=== PATIENT | male | born 1950 | race Caucasian/White ===

== ENCOUNTER 2017-01-30 10:12 | Emergency (ER) | payer SELFPAY ==
[~2017-01-30] VITALS: Ht 180.3 cm; Wt 90.0 kg
[~2017-01-30 10:12] MED LIST: AMIODARONE 900 MG INJ ONE; ATROPINE 1 MG/10 ML SYRINGE ONE; CA CHLORIDE 10% 10 ML SYRINGE ONE; DOPamine-D5W 1.6 MG/ML 250 ML ONE; EPINEPHrine 0.1 MG/ML SYG ONE; ETOMIDATE 20 MG INJ ONE; MAGNESIUM SULFATE 1 GM/100 ML D5W IVPB ONE; SODIUM CL BACTERIOSTATIC 30 ML INJ ONE; SUCCINYLCHOLINE CHLORIDE 100 MG/5 ML SYG IV ONE
[2017-01-30 10:16] VITALS: Ht 180.3 cm; Wt 90.0 kg
[2017-01-30] MEDS ORDERED: EPINEPHrine 0.1 MG/ML SYG ONE ×4 (10:33→11:14)
[2017-01-30 11:37] LABS: ALBUMIN 2.7 g/dl (3.3-4.9); POTASSIUM 3.7 mmol/L (3.5-5.1)
[2017-01-30 11:39] LABS: CREATININE 1.34 mg/dl (0.61-1.24)
[2017-01-30 11:40] LABS: ALBUMIN/GLOBULIN RATIO 0.93; BILIRUBIN,INDIRECT 0.3 mg/dl (0-1.1); BILIRUBIN,TOTAL 0.3 mg/dl (0.2-1.3); CALCIUM 9.5 mg/dl (8.4-10.2); TOTAL PROTEIN 5.6 g/dl (6.1-8.1)
--- NOTE | 2017-01-30 11:43 | ERA ---
ER Documentation Chief Complaint Date/Time DATE: 01/30/17 TIME: 11:34 Chief Complaint Cardiac arrest HPI Patient is a 66-year-old male with a family history of coronary disease who presents not feeling well. The patient was brought in by ambulance and when he arrived he was caren-arrest. He was not mentating well and could not answer my questions. Very quickly he became nonresponsive. The patient received aspirin en route by paramedics. His heart rate was showing runs of fast beats which was wide-complex and then would slow down. Upon review of old medical records he has never been here before. Please note the history and physical exam is limited as the patient is nonresponsive at this time. ROS All systems reviewed and are negative except as per history of present illness. Medications Home Meds Unable to Obtain Active Prescriptions or Reported Meds Allergies Allergies: Coded Allergies: Unable to Assess (Verified Allergy, Severe, 01/30/17) PMhx/Soc Medical and Surgical Hx: pt denies Medical Hx FmHx Family History: coronary disease Physical Exam Physical Exam Const: Pale and nonresponsive Head: Atraumatic Eyes: Normal Conjunctiva ENT: Normal External Ears, Nose and Mouth. Neck: Full range of motion..~ No meningismus. Resp: Decreased respiratory effort Cardio: Tachycardic rate without palpable pulses Abd: Soft, non tender, non distended. Normal bowel sounds Skin: Cyanotic Back: No midline or flank tenderness Ext: No cyanosis, or edema Neur: GCS of 3, (1, 1, 1) Result Diagram: 01/30/17 1054 Results 24 hrs Laboratory Tests Test 01/30/17 10:54 Alanine Aminotransferase (ALT/SGPT) 615IU/L Albumin 2.7g/dl Albumin/Globulin Ratio 0.93 Alkaline Phosphatase 54IU/L Anion Gap 25 Aspartate Amino Transf (AST/SGOT) 583IU/L Blood Urea Nitrogen 14mg/dl Calcium Level 9.5mg/dl Carbon Dioxide Level 17mmol/L Chloride Level 105mmol/L Creatinine 1.34mg/dl Direct Bilirubin 0.00mg/dl Globulin 2.90g/dl Glucose Level 319mg/dl Indirect Bilirubin 0.3mg/dl Potassium Level 3.7mmol/L Sodium Level 143mmol/L Total Bilirubin 0.3mg/dl Total Protein 5.6g/dl Troponin I Pending Procedures/MDM EKG read by me: Rate/Rhythm: Wide-complex tachycardia Intervals: Normal Impression: Wide-complex tachycardia Endotracheal Intubation by me: Pre assessment performed. Pre-oxygenation performed with 100% oxygen RSI: Performed w/o complication or hypoxic events. Medications as ordered. Blade: Mac 4 ET Tube: 7.5 cm Depth: 23 cm at the lip Intubation confirmed by colorimetric CO2, equal breath sounds, quiet over the stomach. Procedural Sedation: Pre-assessment performed. See preceding complete history and physical for details. Time out performed. See sedation documentation for details. Risk, benefits and alternatives were discussed with the patient. Medication(s): Etomidate 20 mg IV and succinylcholine 150 mg IV Complications: No hypoxic or apneic events Needle thoracostomy 2: During the code I placed bilateral needle thoracostomies above the second rib in the midclavicular line for possible pneumothorax. There was no harrington of air for either thoracostomy. There was no bleeding. Intraosseous Line Placement by me: Consent implied Anesthesia: None required Location: Anteromedial, Proximal Tibia (1-3 cm below Tibial tuberosity) Device: Blue IO needle Technique: EZ-IO Drill Results: Bone Marrow Aspirated, No extravasation Complications: No evidence of extravasation, compartment syndrome, growth plate damage, or fat embolism Cardioversion: Pre-assessment performed. See preceding complete history and physical for details. Time out performed. Cork Wirer, Continuous Pulse Ox. See sedation documentation for details. Technique: Biphasic Synchronized Cardioversion 200J: Unsuccessful Complications: none Critical Care: Time: 80 minutes Treatments/Evaluations: Close monitoring for dangerous arrhythmia and cardiovascular collapse, while treating with advance cardiac medications and techniques. Defibrillation #1: Patient required defibrillation during the CODE BLUE Technique: Biphasic defibrillation at 200 J for ventricular fibrillation Defibrillation #2: Patient required defibrillation during the CODE BLUE Technique: Biphasic defibrillation at 200 J for ventricular fibrillation Defibrillation #3: Patient required defibrillation during the CODE BLUE Technique: Biphasic defibrillation at 200 J for ventricular fibrillation Defibrillation #4: Patient required defibrillation during the CODE BLUE Technique: Biphasic defibrillation at 200 J for ventricular fibrillation Defibrillation #5: Patient required defibrillation during the CODE BLUE Technique: Biphasic defibrillation at 200 J for ventricular fibrillation Patient is a 66-year-old male who arrived caren-arrest. The patient very quickly became nonresponsive and lost pulses. CPR was started immediately. The patient was intubated during the code. The patient had multiple medications given including epinephrine, bicarbonate, magnesium, calcium chloride, and amiodarone. Dopamine was also started during the code. Initially the patient arrived in a wide-complex tachycardia and there was a concern for ventricular tachycardia and therefore since the patient was unstable the patient was cardioverted almost immediately upon arrival. He quickly lost pulses after this and there was no return of spontaneous circulation. CPR was performed for over 1 hour without return of spontaneous circulation. There was some agonal breathing but the patient never regained pulses and the patient was pronounced at 11:21. Support was provided to the family. Limited transthoracic echo performed by me Indication: Cardiac arrest Pericardium: No effusion Cardiac: Diffuse hypokinesis Image archived in the medical record. Departure Diagnosis: Primary Impression: Cardiac arrest Condition: Critical FLACO HE MD Jan 30, 2017 11:43
[2017-01-30 11:55] LABS: TROPONIN-I 0.205 ng/ml (0.00-0.12)
== END 2017-01-30 14:34 | disposition expired ==
LOC: E/R 10:12
DX: I46.9 Cardiac arrest, cause unspecified (principal); R07.9 Chest pain, unspecified; I25.10 Atherosclerotic heart disease of native coronary artery without angina pectoris
CPT/HCPCS: 31500; 32551; 36680; 80053; 83605; 84484; 92960; 93005; 99291; J0171; J0282; J0330; J0461; J1265; J3475